=== PATIENT | male | born 1965 | race Caucasian/White ===

== ENCOUNTER 2018-04-03 10:35 | Observation (INO) ==
--- NOTE | 2018-04-03 11:12 | DR.CP ---
HPI Time Seen Time Seen by Provider: 04/03/18 10:57 PCP Primary Care Physician: NFD Complaint Chief Complaint Doctor Comments: Six months ago had onset of left arm pain that radiated to the chest that lasted 30-60 minutes that was burning in character. One to two weeks ago again had chest pain radiating to the left arm with a duration of 45 minutes, pressure,diaphoretic. Dad at 39 years of age heart attack. He is a 1ppd cigarette smoker x45 years. Chief Complaint:: PT. C/O INTERMITTENT CHEST PAIN/HEAVINESS THAT RADIATES TO HIS LEFT ARM. PT. 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 PT. STATES HE BROKE OUT INTO A SWEAT AND THE PAIN WAS SEVERE. PAIN LASTS FROM 15 MINUTES TO 1 HOUR. Source History Provided: Patient Mode of Arrival Mode of Arrival: Ambulatory Timing Onset of Chief Complaint: 04/03/18 PMH PMH Past Medical History: Yes Past Medical History: Hypertension Past Surgical History: No Surgical History: No History Family History History of Family Medical Conditions: Yes Family Medical History: [place] and Coronary Artery Disease Social History Does patient currently use any type of tobacco product: Yes Have you used tobacco products in the last 12 months: Yes Type of Tobacco Use: Cigarettes Does any household member use tobacco: Yes Alcohol Use: Occasionally Do you use any recreational Drugs:: No Lives With: Spouse Lives Where: Home infectious screening In the last 2 months have you had wt loss of >10#?: NO Have you had fever, night sweats or hemotysis?: No Have you traveled outside the country in the last 6 months?: No Isolation: Standard PE Vitals Vitals: Temperature 98.5 F Pulse Rate [Apical] 70 Pulse Rate 71 Respiratory Rate 18 Blood Pressure [Left Arm] 168/104 Blood Pressure 166/96 O2 Sat by Pulse Oximetry 95 General Limitations: No Limitations and Language Barrier General Appearance: Alert and In No Apparent Distress Head Head Exam: Normal Inspection, Atraumatic and Normocephalic Eyes Eye exam: Normal Appearance, PERRL and EOMI ENT ENT Exam: Normal Exam, Normal Oropharynx, Normal External Ear Exam, Mucous Membranes Moist and TM's Normal Bilaterally Chest Chest Inspection: Normal Inspection and Symmetric Chest Wall Rise Respiratory Respiratory Exam: Normal Lung Sounds Bilat; negative Prolonged Expiratory Phase and Respiratory Distress Respiratory Exam: Bilateral: Clear to Auscultation Cardiovascular Cardiovascular Exam: Regular Rate and Normal Rhythm Pulse: Normal Edema: Normal Abdominal Exam Abdominal Exam: Normal Inspection, Normal Bowel Sounds and Soft Abdominal Tenderness: negative RUQ, RLQ, LUQ, LLQ, Epigastrium and Suprapubic Back Back Exam: Normal Inspection and Full ROM; negative Tenderness, (R) CVA Tenderness, (L) CVA Tenderness and Muscle Spasm Neurologic Neurological Exam: Alert, Oriented X3 and CN II-XII Intact Psychiatric Psychiatric Exam: Normal Affect Skin Skin Exam: Warm, Dry and Intact; negative Diaphoresis COURSE Consultation Called: 12:00 Consultation Comments: 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 Labs Reviewed Laboratory Results Reviewed?: Yes Result Diagrams: 04/03/18 11:15 04/03/18 11:15 Laboratory: WBC 7.0 X10^3/uL (3.6-10.0) 04/03/18 11:15 RBC 4.61 X10^6/uL (4.7-6.0) L 04/03/18 11:15 Hgb 15.2 g/dL (13.5-18.0) 04/03/18 11:15 Hct 43.4 % (42.0-54.0) 04/03/18 11:15 MCV 94.2 fL (80.0-100.0) 04/03/18 11:15 MCH 32.9 pg (27.0-34.0) 04/03/18 11:15 MCHC 34.9 g/dL (33.0-35.0) 04/03/18 11:15 RDW 13.0 % (11.6-16.5) 04/03/18 11:15 Plt Count 220 X10^3/uL (150.0-450.0) 04/03/18 11:15 MPV 8.9 fL (7.4-11.0) 04/03/18 11:15 Neut % (Auto) 69.3 % (42.0-75.0) 04/03/18 11:15 Lymph % (Auto) 21.0 % (21.0-51.0) 04/03/18 11:15 Hale % (Auto) 6.9 % (0.0-13.0) 04/03/18 11:15 Eos % (Auto) 2.0 % (0.9-2.9) 04/03/18 11:15 Baso % (Auto) 0.8 % (0.2-1.0) 04/03/18 11:15 Neut # (Auto) 4.9 x10^3/uL (2.2-4.8) H 04/03/18 11:15 Lymph # (Auto) 1.5 X10^3/uL (1.3-2.9) 04/03/18 11:15 Hale # (Auto) 0.5 x10^3/uL (0.3-0.8) 04/03/18 11:15 Eos # (Auto) 0.1 x10^3/uL (0.0-0.2) 04/03/18 11:15 Baso # (Auto) 0.1 X10^3/uL (0.0-0.1) 04/03/18 11:15 Absolute Nucleated RBC 0.1 /100WBC 04/03/18 11:15 Sodium 137 mmol/L (136-145) 04/03/18 11:15 Corrected Sodium 138 mmol/L (136-145) 04/03/18 11:15 Potassium 3.6 mmol/L (3.5-5.1) 04/03/18 11:15 Chloride 104 mmol/L (98-107) 04/03/18 11:15 Carbon Dioxide 28.7 mmol/L (21-32) 04/03/18 11:15 BUN 8 mg/dL (7-18) 04/03/18 11:15 Creatinine 0.85 mg/dL (0.70-1.30) 04/03/18 11:15 Est GFR (MDRD) Af Amer > 60 (>60) 04/03/18 11:15 Est GFR (MDRD) Non-Af > 60 (>60) 04/03/18 11:15 Glucose 136 mg/dL (65-99) H 04/03/18 11:15 Calcium 8.1 mg/dL (8.5-10.1) L 04/03/18 11:15 Corrected Calcium 8.7 mg/dL (8.5-10.1) 04/03/18 11:15 Total Bilirubin 0.50 mg/dL (0.2-1.0) 04/03/18 11:15 AST 27 Units/L (15-37) 04/03/18 11:15 ALT 25 Units/L (12-78) 04/03/18 11:15 Alkaline Phosphatase 63 Units/L (46-116) 04/03/18 11:15 Creatine Kinase 116 Units/L (39-308) 04/03/18 11:15 CK-MB (CK-2) 1.4 ng/mL (0-4.0) 04/03/18 11:15 CK/CKMB % Calc 1.2 % (<4) 04/03/18 11:15 Troponin I < 0.02 ng/mL (0-1.5) 04/03/18 11:15 Total Protein 7.2 g/dL (6.4-8.2) 04/03/18 11:15 Albumin 3.3 g/dL (3.4-5.0) L 04/03/18 11:15 Globulin 3.9 g/dL (2.5-4.5) 04/03/18 11:15 Albumin/Globulin Ratio 0.8 Ratio (1.1-2.1) L 04/03/18 11:15 XRAY XRAY Interpreted by: Both XRAY Findings: Chest: Hyperinflation, no acute cardiopulmonary disease
[2018-04-03 11:31] LABS: BASOPHILS # (AUTO) 0.1 X10^3/uL (0.0-0.1); BASOPHILS % (AUTO) 0.8 % (0.2-1.0); EOSINOPHILS # (AUTO) 0.1 x10^3/uL (0.0-0.2); HEMATOCRIT 43.4 % (42.0-54.0); HEMOGLOBIN 15.2 g/dL (13.5-18.0); LYMPHOCYTES # (AUTO) 1.5 X10^3/uL (1.3-2.9); MEAN CORPUSCULAR HEMOGLOBIN 32.9 pg (27.0-34.0); MEAN CORPUSCULAR HGB CONC 34.9 g/dL (33.0-35.0); MEAN CORPUSCULAR VOLUME 94.2 fL (80.0-100.0); MEAN PLATELET VOLUME 8.9 fL (7.4-11.0); MONOCYTES # (AUTO) 0.5 x10^3/uL (0.3-0.8); MONOCYTES % (AUTO) 6.9 % (0.0-13.0); NEUTROPHILS # (AUTO) 4.9 x10^3/uL (2.2-4.8); NEUTROPHILS % (AUTO) 69.3 % (42.0-75.0); PLATELET COUNT 220 X10^3/uL (150.0-450.0); RED BLOOD COUNT 4.61 X10^6/uL (4.7-6.0)
[2018-04-03] MEDS: NS 1000 ML 1,000 ML IV SCH ×2 (11:32→20:41)
--- NOTE | 2018-04-03 11:42 | RAD ---
HISTORY: Intermittent chest pain and left arm pain and numbness Study: Single-view chest, done portably Comparison: No priors Findings: Trachea is midline. Heart size is normal. There is hyperinflation of the lungs with calcified granulo mas bilaterally. No acute or active disease is seen in the lungs or pleural spaces. Osseous structure s are intact. IMPRESSION: Hyperinflation of the lungs without acute or active disease. Reported By:
[2018-04-03 11:44] LABS: BLOOD UREA NITROGEN 8 mg/dL (7-18); CALCIUM 8.1 mg/dL (8.5-10.1); CARBON DIOXIDE 28.7 mmol/L (21-32); CHLORIDE 104 mmol/L (98-107); COR NA(FOR HYPERGLY) 138 mmol/L (136-145); CREATININE 0.85 mg/dL (0.70-1.30); SODIUM 137 mmol/L (136-145); TROPONIN I < 0.02 ng/mL (0-1.5); eGFR NON BLACK RACES > 60 (>60)
[2018-04-03 11:48] LABS: ALANINE AMINOTRANSFERASE 25 Units/L (12-78); ALBUMIN 3.3 g/dL (3.4-5.0); ALKALINE PHOSPHATASE 63 Units/L (46-116); ASPARTATE AMINO TRANSFERASE 27 Units/L (15-37); CKMB % 1.2 % (<4); COR CA(FOR HYPOALB) 8.7 mg/dL (8.5-10.1); CREATINE KINASE 116 Units/L (39-308); CREATINE KINASE MB 1.4 ng/mL (0-4.0); TOTAL PROTEIN 7.2 g/dL (6.4-8.2)
[2018-04-03] MEDS ORDERED: CATAPRES TAB 0.2 MG ONE (12:46)
[2018-04-03] MEDS ORDERED: CATAPRES TAB 0.2 MG PO ONE (12:46)
[2018-04-03 12:56] LABS: BILIRUBIN,URINE NEGATIVE (NEGATIVE); BLOOD/HEMOGLOBIN,URINE 1+ (NEGATIVE); GLUCOSE, URINE NEGATIVE (NEGATIVE); KETONES,URINE NEGATIVE (NEGATIVE); LEUKOCYTE ESTERASE ,URINE NEGATIVE (NEGATIVE); NITRITES,URINE NEGATIVE (NEGATIVE); PH,URINE 6.5 (5.0 - 8.0); PROTEIN,URINE NEGATIVE (NEGATIVE); UROBILINOGEN,URINE NORMAL (NORMAL)
[2018-04-03 13:06] LABS: APPEARANCE,URINE CLEAR (CLEAR); BACTERIA,URINE NEGATIVE /HPF (NEGATIVE); COLOR,URINE YELLOW (YELLOW); RBC,URINE 0-2 /HPF (NONE SEEN); SQUAMOUS EPITHELIAL CELL,UR NEGATIVE /HPF (NEGATIVE)
[2018-04-03 14:24] VITALS: BMI 20.5
[2018-04-03 17:44] LABS: CKMB % 1.7 % (<4); CREATINE KINASE MB 1.6 ng/mL (0-4.0); TROPONIN I 0.04 ng/mL (0-1.5)
[2018-04-03] MEDS ORDERED: NORCO 5/325 MG TAB PO PRN (20:42)
[2018-04-03 23:58] LABS: CKMB % 1.2 % (<4); CREATINE KINASE 86 Units/L (39-308); CREATINE KINASE MB < 1.0 ng/mL (0-4.0); TROPONIN I 0.03 ng/mL (0-1.5)
[2018-04-04] MEDS: NS 1000 ML 1,000 ML IV SCH (04:47)
[2018-04-04 05:21] LABS: CHOL/HDL RATIO 2.9 (0.0-5.0)
[2018-04-04 08:02] VITALS: BP 139/82
== END 2018-04-04 11:00 | disposition home or self-care (01) ==
LOC: MED/SURG 10:40 → ER 10:40 → MED/SURG 13:18
PROVIDERS: ADMIT Obstetrics & Gynecology Obstetrics; ATTEND Obstetrics & Gynecology Obstetrics
DX: R94.31 Abnormal electrocardiogram [ECG] [EKG]; R73.09 Other abnormal glucose; M79.602 Pain in left arm; R07.89 Other chest pain
CPT/HCPCS: 36415; 71010; 71045; 80053; 80061; 81001; 82550; 82553; 84484; 85025; 93005; 93010; 96365; 96367; 99284; A4222; G0378; J7030